=== PATIENT | female | born 1995 | race Caucasian/White ===

== ENCOUNTER 2023-02-04 09:50 | Day surgery (SDC) | payer SELFPAY ==
[2023-01-08 14:21] VITALS: BMI 19.9
[~2023-02-04 09:50] MED LIST: LACTATED RINGERS SOLUTION 1,000 ML IV SCH; ONDANSETRON 4 MG/2 ML VIAL IVPUSH PRN
[2023-02-04] MEDS ORDERED: MIDAZOLAM HCL 2 MG/2 ML SINGLE DOSE VIAL ONE (12:55)
[2023-02-04] MEDS ORDERED: GENTAMICIN SO4 80 MG/2 ML VIAL ONE ×2 (12:58→15:00)
[2023-02-04] MEDS ORDERED: LIDOCAINE 1%-EPI 1:100,000 30 ML MDV IJ ONE (12:58)
[2023-02-04] MEDS ORDERED: ceFAZolin SODIUM 1 GM VIAL ONE ×3 (12:58→15:00)
[2023-02-04] MEDS ORDERED: BUPIVACAINE HCL/PF 2.5 MG/ML - 30 ML VIAL IJ ONE ×2 (12:59→16:02)
[2023-02-04] MEDS ORDERED: GUM MASTIC/STORAX/MSAL/ALCOHOL 1 DRP DROPSBTL MC ONE (13:12)
[2023-02-04] MEDS ORDERED: oxyCODONE HCL 5 MG TABLET PO PRN (13:41)
[2023-02-04] MEDS ORDERED: ONDANSETRON 4 MG/2 ML VIAL IVPUSH PRN (13:41)
[2023-02-04] MEDS ORDERED: PROMETHAZINE HCL 25 MG/1 ML VIAL IVPB PRN (13:41)
[2023-02-04] MEDS ORDERED: LACTATED RINGERS SOLUTION 1,000 ML IV SCH (13:45)
[2023-02-04] MEDS ORDERED: KETOROLAC TROMETHAMINE 30 MG/1 ML VIAL ONE (14:00)
[2023-02-04] MEDS ORDERED: PROPOFOL 40 ML ONE (14:10)
[2023-02-04] MEDS ORDERED: ONDANSETRON 4 MG/2 ML VIAL ONE (17:51)
[2023-02-04] MEDS ORDERED: PROMETHAZINE HCL 25 MG/1 ML VIAL ONE (18:38)
[2023-02-04] MEDS ORDERED: CEFAZOLIN 1 GM in DEXTROSE 5%-WATER - 50 ML IVPB ONE (19:30)
[2023-02-04] MEDS ORDERED: ceFAZolin SODIUM 1 GM VIAL IVPB ONE (19:45)
[2023-02-04 20:09] VITALS: TEMP 97.7
[2023-02-04 20:13] VITALS: BP 127/75; PULSE 107; RESP 18
== END 2023-02-04 20:13 | disposition home or self-care (01) ==
LOC: FASU 09:50
PROVIDERS: ATTEND Surgery
CPT/HCPCS: 84703; 88305-TC; 94760